=== PATIENT | female | born 1970 | race Caucasian/White ===

== ENCOUNTER 2020-11-13 19:57 | Inpatient (IN) | payer BC ==
[~2020-11-13] VITALS: Ht 165.1 cm; Wt 94.3 kg
--- NOTE | 2020-11-13 20:03 | NUR ---
PT BIBRA C/O LLQ PAIN RADIATING TO LOWER BACK. PT AAOX4 BREATHING EVENLY AND UNLABORED. PT SKIN WARM, DRY, AND INTACT. RT AC 20G INITIATED, BLOOD OBTAINED AND SENT TO LAB. PT ATTACHED TO MONITOR AND POX. PT GIVEN BLANKET AND CALL LIGHT WITHIN REACH.
[2020-11-13] MEDS ORDERED: ONDANSETRON HCL/PF 4 MG/2 ML VIAL ONE (20:14)
[2020-11-13] MEDS ORDERED: PANTOPRAZOLE 40 MG VIAL ONE (20:14)
[2020-11-13] MEDS ORDERED: MORPHINE SULFATE INJ 4 MG/ML DISP.SYRIN ONE (20:14)
[2020-11-13 20:24] LABS: BASOPHILS % (AUTO) 0.5 % (0.0-2.0); EOSINOPHILS % (AUTO) 1.2 % (0.0-6.0); HEMATOCRIT 40 % (33-45); LYMPHOCYTES # (AUTO) 2.7 /CMM (0.8-4.8); LYMPHOCYTES % (AUTO) 48.1 % (20.0-44.0); MEAN CORPUSCULAR HGB CONC 33 g/dl (31.0-36.0); MEAN CORPUSCULAR VOLUME 89 fL (82-100); MONOCYTES # (AUTO) 0.5 /CMM (0.1-1.30); MONOCYTES % (AUTO) 8.6 % (2.0-12.0); NEUTROPHILS # (AUTO) 2.4 /CMM (1.8-8.9); NEUTROPHILS % (AUTO) 41.6 % (43.0-81.0); PLATELET COUNT (AUTO) 251 /CMM (150-450); RED BLOOD CELL COUNT(AUTO) 4.44 MIL/uL (4.0-5.2); WHITE BLOOD COUNT (AUTO) 5.7 K/uL (4.3-11.0)
--- NOTE | 2020-11-13 20:26 | NUR ---
taken to radiology
[2020-11-13] MEDS ORDERED: IV NS 0.9% 1,000 ML BAG IV ONE (20:30)
[2020-11-13] MEDS ORDERED: PANTOPRAZOLE 40 MG VIAL IV ONE (20:30)
[2020-11-13] MEDS ORDERED: ONDANSETRON HCL/PF 4 MG/2 ML VIAL IVP ONE (20:30)
[2020-11-13] MEDS ORDERED: MORPHINE SULFATE INJ 2 MG/ML DISP.SYRIN IV ONE (20:30)
--- NOTE | 2020-11-13 20:38 | NUR ---
RETURNED FROM RADIOLOGY
[2020-11-13 20:45] LABS: ALBUMIN 3.6 g/dL (3.4-5.0); BILIRUBIN,DIRECT 0.1 mg/dL (0.0-0.2); BILIRUBIN,TOTAL 0.4 mg/dL (0.2-1.0); CALCIUM, SERUM 9.2 mg/dL (8.5-10.1); CREATININE 0.7 mg/dL (0.6-1.3); POTASSIUM 2.9 mmol/L (3.5-5.1); TOTAL PROTEIN, SERUM 7.6 g/dL (6.4-8.2)
--- NOTE | 2020-11-13 20:54 | NUR ---
CALLED LAB FOR COVID SWAB
--- NOTE | 2020-11-13 21:11 | NUR ---
VERBAL ORDER 1MG DILAUDED
[2020-11-13] MEDS ORDERED: HYDROMORPHONE 1 MG/1 ML DISP.SYRIN ONE (21:13)
--- NOTE | 2020-11-13 21:18 | NUR ---
CALLED DR CENTENO, LEFT VOICEMAIL
--- NOTE | 2020-11-13 21:24 | NUR ---
COVID SWAB SENT TO LAB
--- NOTE | 2020-11-13 21:25 | NUR ---
CALLED LAB FOR SPECIMEN [facility]
--- NOTE | 2020-11-13 21:28 | NUR ---
CALLED [facility], PAGED YULIANA
[2020-11-13] MEDS ORDERED: HYDROMORPHONE 1 MG/1 ML DISP.SYRIN IV ONE (21:30)
[2020-11-13] MEDS ORDERED: IV PREMIX D5 1/2NS + KCL 1,000 ML IV ONE ×2 (21:30→22:14)
--- NOTE | 2020-11-13 21:31 | NUR ---
CALLED [facility] FOR D5 1/2NS 20MEQ KCL
--- NOTE | 2020-11-13 21:45 | NUR ---
DR. JACOBO KOLB PER ER ORDER.
--- NOTE | 2020-11-13 21:48 | NUR ---
PAULY ABDUL TALKING TO DR. AYDEN CENTENO REGARDING PT.
[2020-11-13] MEDS ORDERED: Z GUARD REMEDY 2 OZ OINT TP PRN (22:00)
[2020-11-13] MEDS ORDERED: HYDROCODONE/APAP 5/325MG TABLET PO PRN (22:00)
[2020-11-13] MEDS ORDERED: ACETAMINOPHEN 325 MG TABLET PO PRN (22:00)
[2020-11-13] MEDS ORDERED: ONDANSETRON HCL/PF 4 MG/2 ML VIAL IVP PRN (22:00)
[2020-11-13] MEDS ORDERED: ZOLPIDEM TARTRATE 5 MG TABLET PO PRN (22:00)
[2020-11-13] MEDS ORDERED: MAG HYDROX/AL HYDROX/SIMETH 30 ML UDC PO PRN (22:00)
[2020-11-13] MEDS ORDERED: MAGNESIUM HYDROXIDE 30 ML UDC PO PRN (22:00)
[2020-11-13] MEDS ORDERED: MORPHINE SULFATE INJ 2 MG/ML DISP.SYRIN IV PRN (22:00)
--- NOTE | 2020-11-13 22:14 | NUR ---
CALLED [facility] FOR F/U ABOUT D5 1/2 NS 20MEQ KCL
--- NOTE | 2020-11-13 22:19 | NUR ---
LAB CALLED REGARDING NEGATIVE COVID RESULT.
--- NOTE | 2020-11-13 22:37 | NUR ---
PER LAB, LACTIC ACID 2.2
--- NOTE | 2020-11-13 22:50 | NUR ---
M/S 321-2
--- NOTE | 2020-11-13 22:55 | NUR ---
GAVE REPORT TO SABINO SOLITARIO FOR DOLLY
--- NOTE | 2020-11-13 23:02 | NUR ---
PER DR BRIDGES 100ML/HR NS AND RECHECK LACTIC IN 6 HOURS
--- NOTE | 2020-11-13 23:17 | NUR ---
CALLED LAB TO MOBILE APPLICATION DEVELOPMENT LEAD URINE SAMPLE
[2020-11-13 23:23] LABS: BILIRUBIN,URINE NEGATIVE (NEGATIVE); COLOR,URINE YELLOW (YELLOW); LEUKOCYTE ESTERASE ,URINE NEGATIVE (NEGATIVE); NITRITE, URINE NEGATIVE (NEGATIVE); PROTEIN,URINE NEGATIVE (NEGATIVE); UGLUCOSE NEGATIVE (NEGATIVE); UROBILINOGEN,URINE 0.2 EU/dL (0.2)
[2020-11-13 23:29] LABS: BACTERIA,URINE 1+ /HPF (None Seen); CALCIUM OXALATE CRYSTALS,UR Few /HPF (None Seen); MUCUS,URINE Moderate /LPF (None Seen); SQUAMOUS EPITHELIAL CELL,UR Moderate /HPF (None Seen); URINE AMORPHOUS URATE Moderate /HPF (None Seen)
[2020-11-13] MEDS ORDERED: IV NS 0.9% 1,000 ML IV PRN (23:30)
[2020-11-14] VITALS: BP 139/80
--- NOTE | 2020-11-14 00:05 | NUR ---
MS/TELE/RN RECEIVED PATIENT FROM [facility] BY SHAYLA. PATIENT WAS AWAKE, ALERT, ORIENTED, COMFORTABLE, NO C/O PAIN AT THIS TIME, NO SIGNS OF DISTRESS NOTED, MADE COMFORTABLE IN BED, ADMISSION DONE PER PROTOCOL, PHYSICAL ASSESSMENT WAS DONE, PLAN OF CARE DISCUSSED WITH THE PATIENT, VERBALISED UNDERSTANDING AND AGREEMENT, TAUGHT THE USE OF CALL LIGHT, VERBALISED UNDERSTANDING, PLACED IT AT BEDSIDE WITHIN REACH, NEEDS ATTENDED AT THIS TIME, WILL MONITOR.
[2020-11-14] MEDS: POTASSIUM CL. PREMIX PERIPHER. 50 ML IV SCH ×6 (00:18→05:48)
--- NOTE | 2020-11-14 05:53 | NUR ---
MS/TELE/RN PATIENT IS AWAKE, INFORMED PATIENT THAT DR. CENTENO SCHEDULED HER FOR SURGERY AT 10:00 TODAY, PATIENT VERBALISED UNDERSTANDING.
--- NOTE | 2020-11-14 07:07 | NUR ---
MS RN OPENING NOTE RECEIVED PT AWAKE IN BED. A/O X4. PT IS STABLE ON ROOM AIR. NO SOB NOTED. NO S/S OF RESPIRATORY DISTRESS. PT IS AMBULATORY WITH [facility]. PT HAS NO C/O PAIN AT THIS TIME. IV ACCESS IN RAC #20G, NS RUNNING AT 100 ML/HR. IV IS INTACT AND PATENT. SAFETY MEASURES MAINTAINED. BED IN LOWEST LOCKED POSITION. HOB ELEVATED. SIDE RAILS UP X2, CALL LIGHT AND TABLE WITHIN REACH. WILL CONTINUE WITH PLAN OF CARE.
[2020-11-14 08:00] VITALS: BP 137/77
[2020-11-14 08:39] LABS: BASOPHILS % (AUTO) 0.5 % (0.0-2.0); EOSINOPHILS % (AUTO) 0.1 % (0.0-6.0); HEMATOCRIT 37 % (33-45); HEMOGLOBIN 12.3 g/dL (11.5-14.8); LYMPHOCYTES # (AUTO) 1.7 /CMM (0.8-4.8); MEAN CORPUSCULAR HGB CONC 33 g/dl (31.0-36.0); MEAN CORPUSCULAR VOLUME 89 fL (82-100); MONOCYTES # (AUTO) 0.5 /CMM (0.1-1.30); NEUTROPHILS # (AUTO) 4.2 /CMM (1.8-8.9); NEUTROPHILS % (AUTO) 65.4 % (43.0-81.0); PLATELET COUNT (AUTO) 237 /CMM (150-450); RED BLOOD CELL COUNT(AUTO) 4.19 MIL/uL (4.0-5.2); WHITE BLOOD COUNT (AUTO) 6.4 K/uL (4.3-11.0)
[2020-11-14 08:55] LABS: BILIRUBIN,TOTAL 0.6 mg/dL (0.2-1.0); CALCIUM, SERUM 8.6 mg/dL (8.5-10.1); CREATININE 0.5 mg/dL (0.6-1.3); PHOSPHORUS 3.1 mg/dL (2.5-4.9); POTASSIUM 3.8 mmol/L (3.5-5.1); TOTAL PROTEIN, SERUM 6.7 g/dL (6.4-8.2)
[2020-11-14 16:00] VITALS: BP 110/49
--- NOTE | 2020-11-14 18:18 | NUR ---
MS [employer] F[employer]ER NOTE PT DISCHARGED HOME WITH SELF CARE AT THIS TIME. PT MEDICALLY STABLE AND CLEARED FOR DISCHARGE BY DR. WARE. ALL PT CARE, NEEDS, MEDICATIONS, AND TREATMENT ADMINISTERED ANTICIPATED PER ORDER. ALL DISCHARGE INSTRUCTIONS PROVIDED. PT VERBALIZED UNDERSTANDING. PT KEPT CLEAN AND DRY. BELONGING LIST ACCOUNTED FOR, SIGNED BY PT, AND WITH PT. ID BAND REMOVED. IV ACCESS REMOVED, PRESSURE APPLIED, AND SECURED WITH GAUZE AND TAPE. NO S/O BLEEDING OR INFILTRATION NOTED. PT TRANSPORTED TO [facility] VIA WHEELCHAIR, ACCOMPANIED BY CNA. FLAVIO MONCADA, CHARGE NURSE AND DR. WARE AWARE.
== END 2020-11-14 18:31 | disposition home or self-care (01) | DRG 394 ==
LOC: ER 19:57 → MED 23:22
PROVIDERS: ADMIT Family Medicine; ATTEND Nurse Practitioner Acute Care
DX: K42.0 Umbilical hernia with obstruction, without gangrene (principal); E87.2 Acidosis; D68.59 Other primary thrombophilia; E87.6 Hypokalemia; Z68.34 Body mass index [BMI] 34.0-34.9, adult; E66.01 Morbid (severe) obesity due to excess calories; E86.0 Dehydration; R73.03 Prediabetes; N20.0 Calculus of kidney
CPT/HCPCS: 36415; 71045-TC; 80048-TC; 80053-TC; 80061-TC; 80076-TC; 81001; 83605-TC; 83690-TC; 83735-TC; 84100-TC; 85025-TC; 85730-TC; 87081-TC; 87086-TC; C9113; C9803; G0378; J1170; J2270; J2405; J3480; J3490; J7030